=== PATIENT | male | born 2000 | race Caucasian/White ===

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

== ENCOUNTER 2018-09-19 20:32 | Emergency (ER) | payer OTHER ==
[~2018-09-19] VITALS: Ht 177.8 cm; Wt 80.0 kg
[~2018-09-19 20:32] MED LIST: ACET650S21 PO; DOCU-131 PO; OXYC5TAB2 PO
[2018-09-19 20:34] VITALS: BP 140/81
== END 2018-09-19 22:54 | disposition home or self-care (01) ==
LOC: ED 22:40
DX: S02.2XXA Fracture of nasal bones, initial encounter for closed fracture (principal); X58.XXXA Exposure to other specified factors, initial encounter; Y93.89 Activity, other specified; Y92.89 Other specified places as the place of occurrence of the external cause; Y99.8 Other external cause status
CPT/HCPCS: 70160; 70486; 99284

== ENCOUNTER 2019-04-02 21:43 | Emergency (ER) | payer OTHER ==
[~2019-04-02] VITALS: Ht 177.8 cm; Wt 85.0 kg
[2019-04-02 21:46] VITALS: BP 133/94
[2019-04-02] MEDS ORDERED: BACITRACIN ZINC OINT 500U/GM, 0.9 GM ONE (21:59)
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
== END 2019-04-02 23:39 | disposition home or self-care (01) ==
LOC: ED 22:12
DX: S16.1XXA Strain of muscle, fascia and tendon at neck level, initial encounter (principal); M25.561 Pain in right knee; V49.49XA Driver injured in collision with other motor vehicles in traffic accident, initial encounter; Y93.89 Activity, other specified; Y92.89 Other specified places as the place of occurrence of the external cause; Y99.8 Other external cause status
CPT/HCPCS: 72125; 99284